=== PATIENT | female | born 1995 | race Two or more races ===

== ENCOUNTER 2019-07-04 00:14 | Emergency (ER) | payer MEDICAID, OTHER ==
[~2019-07-04] VITALS: Ht 162.6 cm; Wt 54.9 kg
--- NOTE | 2019-07-04 00:20 | NUR ---
"BIBRA99/[employer] FROM HOME C/O +SI/DEPRESSION, PER RA PATIENT IS ETOH. DRANK A BOTTLE OF TEQUILA AND TOOK XANAX X 2 UNKNOWM STRENGTH." [employer] IN FACILITY WROTE A 5150, PT ALERT, AWAKE, ABLE TO MAKE NEEDS KNOWN, VSS, PT ON MONITOR, PENDING MD CHANDLER
--- NOTE | 2019-07-04 00:25 | NUR ---
PT WANDED BY SECURITY, ALL BELONGINGS IN LOCKERS FOR SAFETY.
--- NOTE | 2019-07-04 00:30 | NUR ---
PT AMBULATED TO BATHROOM WITH ASSISTANCE FROM STAFF, URINE COLLECTED AND SENT TO LAB
[2019-07-04 00:45] LABS: APPEARANCE,URINE Clear (CLEAR); BILIRUBIN,URINE Negative (NEGATIVE); BLOOD, URINE Trace-intact Ery/uL (NEGATIVE); COLOR,URINE Yellow (YELLOW); KETONES,URINE Negative (NEGATIVE); LEUKOCYTE ESTERASE ,URINE Negative (NEGATIVE); NITRITE, URINE Negative (NEGATIVE); PROTEIN,URINE Negative (NEGATIVE); UGLUCOSE Negative (NEGATIVE); UROBILINOGEN,URINE 0.2 EU/dL (0.2)
[2019-07-04 00:46] LABS: BASOPHILS # (AUTO) 0.1 /CMM (0.0-0.2); EOSINOPHILS % (AUTO) 0.3 % (0.0-6.0); HEMATOCRIT 38 % (33-45); HEMOGLOBIN 12.9 g/dL (11.5-14.8); LYMPHOCYTES # (AUTO) 3.2 /CMM (0.8-4.8); LYMPHOCYTES % (AUTO) 62.5 % (20.0-44.0); MEAN CORPUSCULAR HGB CONC 34 g/dl (31.0-36.0); MEAN CORPUSCULAR VOLUME 101 fL (82-100); MONOCYTES # (AUTO) 0.3 /CMM (0.1-1.30); MONOCYTES % (AUTO) 5.4 % (2.0-12.0); NEUTROPHILS # (AUTO) 1.6 /CMM (1.8-8.9); NEUTROPHILS % (AUTO) 30.8 % (43.0-81.0); PLATELET COUNT (AUTO) 227 /CMM (150-450); RED BLOOD CELL COUNT(AUTO) 3.76 MIL/uL (4.0-5.2); WHITE BLOOD COUNT (AUTO) 5.1 K/uL (4.3-11.0)
[2019-07-04 00:54] LABS: CALCIUM, SERUM 8.8 mg/dL (8.5-10.1); CREATININE 0.8 mg/dL (0.6-1.3); POTASSIUM 3.6 mmol/L (3.5-5.1)
[2019-07-04 01:05] LABS: ALBUMIN 4.2 g/dL (3.4-5.0); BILIRUBIN,DIRECT 0.1 mg/dL (0.0-0.2); BILIRUBIN,TOTAL 0.3 mg/dL (0.2-1.0); TOTAL PROTEIN, SERUM 7.4 g/dL (6.4-8.2)
[2019-07-04 01:07] LABS: SALICYLATE 0.9 mg/dL (2.8-20.0)
[2019-07-04 01:18] LABS: BACTERIA,URINE None seen /HPF (None Seen); RBC,URINE 0-2 /HPF (0-2); SQUAMOUS EPITHELIAL CELL,UR Few /HPF (None Seen); WBC,URINE 0-2 /HPF (0-3)
--- NOTE | 2019-07-04 01:51 | NUR ---
PT STATING TO DR CASTILLO THAT SHE IS NOT SUICIDAL.
[2019-07-04] MEDS ORDERED: LORAZEPAM INJ 2 MG/ML VIAL ONE (02:03)
[2019-07-04 02:04] LABS: LYMPHOCYTES % (MANUAL) 53 % (16-48); MONOCYTES % (MANUAL) 3 % (0-11.0); NEUTROPHILS % (MANUAL) 43 (42-76); REACTIVE LYMPHOCYTES 1 % (0-0)
[2019-07-04] MEDS ORDERED: LORAZEPAM INJ 2 MG/ML VIAL IV ONE (02:30)
[2019-07-04] MEDS ORDERED: IV NS 0.9% 1,000 ML BAG IV ONE (02:30)
--- NOTE | 2019-07-04 02:30 | NUR ---
PT ACCIDENTALLY PULLED OUT PIV, PT STATES "I JUST WANT TO GO HOME" PRESSURE APPLIED TO SITE, NO BLEEDING NOTED, RESTARTED PIV, PT AGREEABLE, LAC20.
[2019-07-04 09:53] VITALS: BP 131/92
--- NOTE | 2019-07-04 09:53 | NUR ---
IV removed. Catheter intact and site benign. Pressure and 4x4 applied to site. No bleeding noted. Patient discharged to home in stable condition. Written and verbal after care instructions given. Patient verbalizes understanding of instruction.
== END 2019-07-04 09:55 | disposition home or self-care (01) ==
LOC: ER 00:20
DX: F10.129 Alcohol abuse with intoxication, unspecified (principal); F19.10 Other psychoactive substance abuse, uncomplicated; R74.0 Nonspecific elevation of levels of transaminase and lactic acid dehydrogenase [LDH]; F31.9 Bipolar disorder, unspecified; F41.9 Anxiety disorder, unspecified; E86.0 Dehydration; Y90.8 Blood alcohol level of 240 mg/100 ml or more
CPT/HCPCS: 36415; 80048; 80076; 80305; 80307; 80329; 81001; 84702; 85025; 96361; 96374; 99285; G0480; J2060; J7030; 81000-TC